=== PATIENT | female | born 1955 ===

== ENCOUNTER 2017-07-05 11:27 | Observation (INO) | payer OTHER ==
[2017-07-05] MEDS ORDERED: Aspirin 325 mg EC Tablets PO STA (12:40)
[2017-07-05] MEDS ORDERED: Sodium Chloride 0.9% 500 ML IV ONE ×2 (12:40→12:51)
[2017-07-05 13:18] LABS: BASO # 0.1 K/uL (0.0-0.2); BASO % 1.2 % (0.0-2.0); EOS # 0.5 K/uL (0.0-0.7); EOS % 6.4 % (0.0-4.0); LYMPH # 2.6 K/uL (1.0-4.3); LYMPH % 31.4 % (20.0-40.0); MEAN CELL VOLUME 92.4 fL (81.0-99.0); MEAN CORPUSCULAR HEMOGLOBIN 31.5 pg (27.0-31.0); MEAN CORPUSCULAR HGB CONC 34.1 g/dL (33.0-37.0); MEAN PLATELET VOLUME 8.4 fL (7.2-11.7); MONO # 0.5 K/uL (0.0-0.8); MONO % 6.1 % (0.0-10.0); RED CELL DISTRIBUTION WIDTH 13.5 % (11.5-14.5); WHITE BLOOD COUNT 8.3 K/uL (4.8-10.8)
--- NOTE | 2017-07-05 13:21 | RAD ---
HISTORY: SOB COMPARISON: None available. TECHNIQUE: Chest PA and lateral FINDINGS: Examination limited by habitus. LUNGS: No focal consolidation. Please note that chest x-ray has limited sensitivity for the detection of pulmonary masses. PLEURA: No significant pleural effusion identified. No definite pneumothorax . CARDIOVASCULAR: Heart size appears within normal limits. OSSEOUS STRUCTURES: Degenerative changes of the spine. VISUALIZED UPPER ABDOMEN: Mild elevation of the right hemidiaphragm. OTHER FINDINGS: None. IMPRESSION: No focal consolidation, significant pleural effusion, or definite pneumothorax identified.
[2017-07-05 13:27] LABS: CHLORIDE 99 mmol/L (98-107); POTASSIUM 3.5 mmol/L (3.6-5.2); SODIUM 133 mmol/L (132-148)
[2017-07-05 13:29] LABS: AST/SGOT 19 U/L (14-36); BILIRUBIN,TOTAL 0.6 mg/dL (0.2-1.3); CARBON DIOXIDE 23 mmol/L (22-30); GFR AFRICAN-AMERICAN > 60
[2017-07-05 13:30] LABS: ALB/GLOB RATIO 1.4 (1.0-2.1); ALKALINE PHOSPHATASE 67 U/L (38-126); ALT/SGPT 24 U/L (9-52); BLOOD UREA NITROGEN 14 mg/dL (7-17); CALCIUM 9.6 mg/dl (8.6-10.4); GLUCOSE,RANDOM 96 mg/dL (65-105); TOTAL PROTEIN 7.1 g/dL (6.3-8.3)
[2017-07-05] MEDS ORDERED: Labetalol 25mg/5ml Syringe IV STA (13:58)
[2017-07-05 14:02] LABS: THYROID STIMULATING HORMONE 2.33 mIU/L (0.46-4.68)
[2017-07-05 14:09] LABS: URINE BACTERIA OCC (<OCC); URINE BILIRUBIN NEGATIVE (NEGATIVE); URINE BLOOD NEGATIVE (NEGATIVE); URINE COLOR Straw (YELLOW); URINE GLUCOSE (UA) NORMAL (Normal); URINE KETONE NEGATIVE (NEGATIVE); URINE LEUKOCYTE ESTERASE NEG Leu/uL (Negative); URINE PROTEIN NEGATIVE (NEGATIVE); URINE UROBILINOGEN NORMAL mg/dL (0.2-1.0); WBC URINE < 1 /hpf (0-5)
--- NOTE | 2017-07-05 14:13 | C.PDOC ---
History Of Present Illness 62 year old female, with PMHx of HTN, presents to ED for evaluation of intermittent right side neck tightness for the past few weeks. Pt notes that pain radiates to right occipital area with associated headaches. Pt also reports intermittent chest pain, and palpitations, notes having similar symptoms in the past, usually worse with coughing. Pt notes that she was "not feeling well" for the past few days, which prompted her to visit ED. Denies any chest pain, shortness of breath, or palpitations at this time. Otherwise, denies visual changes, focal deficits, extremity weakness, numbness, back pain, fever, chills, nausea, or vomiting. Time Seen by Provider: 07/05/17 11:47 Chief Complaint (Nursing): Palpitations History Per: Patient History/Exam Limitations: no limitations Onset/Duration Of Symptoms: Days Current Symptoms Are (Timing): Still Present Quality Of Discomfort: "Pain" Previous Symptoms: Neck Pain Associated Symptoms: None. denies: Incontinence, New Weakness, New Numbness Exacerbating Factor(s): Nothing Recent travel outside of the [place]: No Additional History Per: Patient Past Medical History Reviewed: Historical Data, Nursing Documentation, Vital Signs Vital Signs: Last Vital Signs Temp 98.3 F 07/05/17 11:36 Pulse 83 07/05/17 14:42 Resp 18 07/05/17 14:42 BP 149/72 07/05/17 14:42 Pulse Ox 97 07/05/17 15:22 - Medical History PMH: HTN Surgical History: Back Surgery Family History: States: Unknown Family Hx - Social History Hx Alcohol Use: No Hx Substance Use: No - Immunization History Hx Tetanus Toxoid Vaccination: No Hx Influenza Vaccination: No Hx Pneumococcal Vaccination: No Review Of Systems Except As Marked, All Systems Reviewed And Found Negative. Constitutional: Negative for: Fever, Chills Eyes: Negative for: Vision Change Cardiovascular: Negative for: Chest Pain, Palpitations, Edema, Light Headedness Respiratory: Negative for: Cough, Shortness of Breath Gastrointestinal: Negative for: Nausea, Vomiting, Abdominal Pain, Diarrhea Musculoskeletal: Positive for: Neck Pain. Negative for: Shoulder Pain, Back Pain Skin: Negative for: Rash, Bruising Neurological: Positive for: Headache. Negative for: Weakness, Numbness, Dizziness Physical Exam - Physical Exam Appears: Well, Non-toxic, No Acute Distress Skin: Normal Color, Warm, Dry, No Rash Head: Normacephalic Eye(s): bilateral: PERRL Oral Mucosa: Moist, No Drooling Neck: Normal ROM, No Midline Cervical Tenderness, No Paracervical Tenderness, Supple Chest: Symmetrical, No Tenderness Cardiovascular: Rhythm Regular, No Murmur Respiratory: No Accessory Muscle Use, No Rales, No Rhonchi, No Stridor, No Wheezing Gastrointestinal/Abdominal: Soft, No Tenderness Back: No CVA Tenderness Extremity: Normal ROM, No Pedal Edema, No Deformity Neurological/Psych: Oriented x3, Normal Speech, Normal Cognition, Normal Motor, Normal Sensation Gait: Steady ED Course And Treatment - Laboratory Results Result Diagrams: 07/05/17 13:13 07/05/17 13:13 Lab Interpretation: No Acute Changes ECG: Interpreted By Me, Viewed By Me ECG Rhythm: Sinus Rhythm ECG Interpretation: Normal Interpretation Of ECG: No acute ST/T wave changes. Rate From EC (bpm) O2 Sat by Pulse Oximetry: 97 (RA) Pulse Ox Interpretation: Normal - Other Rad CXR X-Ray: Read By Radiologist Interpretation: reator : Jamila Grace MD. Dictator : Jamila Grace MD. Audit Tech : Front Desk Attendant : Jamila Grace MD. Approver2 : Report Date : 07/05/2017 13:19:49. My Comment : . HISTORY: SOB. COMPARISON: None available. TECHNIQUE: Chest PA and lateral. FINDINGS: Examination limited by habitus. LUNGS: No focal consolidation. Please note that chest x-ray has limited sensitivity for the detection of pulmonary masses. PLEURA: No significant pleural effusion identified. No definite pneumothorax . CARDIOVASCULAR: Heart size appears within normal limits. OSSEOUS STRUCTURES : Degenerative changes of the spine. VISUALIZED UPPER ABDOMEN: Mild elevation of the right hemidiaphragm. OTHER FINDINGS: None. IMPRESSION: No focal consolidation, significant pleural effusion, or definite pneumothorax identified. Progress Note: Blood work, UA, CXR, EKG, angio neck CT ordered and reviewed. Patient was given Aspirin, Labetalol, and IV fluids. On re-eval, pt remained unchanged. Case discussed with ED attending, diagnostics and imaging review and admission recommend. Plan discussed with pt, carol with plan. Hospitalist notified about admission. Disposition - Disposition Disposition: HOSPITALIZED Disposition Time: 15:22 Condition: STABLE Forms: [employer] (Hebrew) - Clinical Impression Clinical Impression: Chest pain - PA / AGRICULTURAL ECONOMICS TEACHER / Resident Statement MD/DO has reviewed & agrees with the documentation as recorded. - Scribe Statement The provider has reviewed the documentation as recorded by the Scribe Sheree Ramirez All medical record entries made by the Tessyibe were at my direction and personally dictated by me. I have reviewed the chart and agree that the record accurately reflects my personal performance of the history, physical exam, medical decision making, and the department course for this patient. I have also personally directed, reviewed, and agree with the discharge instructions and disposition.
[2017-07-05] MEDS ORDERED: Iodixanol 320 MG/ML 100 ML BOTTLE IV ONE (15:14)
--- NOTE | 2017-07-05 19:44 | CP.PCM.HP ---
<Ole Carlton - Last Filed: 07/05/17 19:41> History of Present Illness - History of Present Illness History of Present Illness: Medicine H/P for Dr. Blanco CC: "right neck pain" HPI: 62 year old female with PMHx of HTN presents to the ED complaining of moderate persistent right sided neck pain starting yesterday night while doing nothing. The pain is described as "burning" and radiates to the base of the head on the right side that worsens when turning the head to the left. Patient also complains of moderate right shoulder and upper arm pain described as "similar to when my blood pressure is high" although patient states she did not take her BP at home. Associated symptoms include two episodes of palpitations last week that each lasted a few seconds. Patient states she reduced her HTN medication at home starting two months ago because she was running low. Rather than taking Amlodipine/Valsartan 10-160 mg once a day, she had reduced dosing to once a week. Denies trauma, recent illness, or sick contacts. Denies fever, chills, nausea, vomiting, chest pain, SOB, VELASQUEZ. On arrival to ED, patient's BP was 168/90. Patient given ASA 325 mg PO and Labetelol 20 mg IV. At time of exam, patient's BP was 134/92 and she states her neck pain had improved Obstetrics Nurse service provided by Dasia Mcmanus ([id number]) PMD: none PMHx: HTN PSurgHx: none Allergies: NKDA Home Medications: Amlodipine/Valsartan 10-160 mg PO daily FamHx: father had stroke at age 72 SocialHx: lives with a family friend; denies tobacco/alcohol/illicit drug use; works under an agency that frequently reassigns her, currently working in a factory Present on Admission - Present on Admission Any Indicators Present on Admission: No Review of Systems - Constitutional Constitutional: As Per HPI - EENT Eyes: As Per HPI Ears: As Per HPI Nose/Mouth/Throat: As Per HPI - Breasts Breasts: As Per HPI - Cardiovascular Cardiovascular: As Per HPI - Respiratory Respiratory: As Per HPI - Gastrointestinal Gastrointestinal: As Per HPI - Genitourinary Genitourinary: As Per HPI - Reproductive: Female Reproductive:Female: As Per HPI - Menstruation Menstruation: As Per HPI - Musculoskeletal Musculoskeletal: As Per HPI - Integumentary Integumentary: As Per HPI - Neurological Neurological: As Per HPI - Psychiatric Psychiatric: As Per HPI - Endocrine Endocrine: As Per HPI - Hematologic/Lymphatic Hematologic: As Per HPI Past Patient History - Past Social History Smoking Status: Never Smoked - CARDIAC Hx Hypertension: Yes - PSYCHIATRIC Hx Substance Use: No - SURGICAL HISTORY Hx Section: Yes Hx Orthopedic Surgery: Yes - ANESTHESIA Hx Anesthesia: Yes Hx Anesthesia Reactions: No Hx Malignant Hyperthermia: No Meds Allergies/Adverse Reactions: Allergies Allergy/AdvReac Type Severity Reaction Status Date / Time No Known Allergies Allergy Verified 07/05/17 11:39 Physical Exam - Constitutional Appears: Well, Non-toxic, No Acute Distress - Head Exam Head Exam: ATRAUMATIC, NORMAL INSPECTION, NORMOCEPHALIC - Eye Exam Eye Exam: EOMI - ENT Exam ENT Exam: Mucous Membranes Moist - Neck Exam Additional comments: tenderness to palpation on r. aspect of neck - Respiratory Exam Respiratory Exam: Clear to Auscultation Bilateral, NORMAL BREATHING PATTERN - Cardiovascular Exam Cardiovascular Exam: REGULAR RHYTHM - GI/Abdominal Exam GI & Abdominal Exam: Normal Bowel Sounds, Soft. absent: Tenderness - Extremities Exam Extremities exam: Negative for: joint swelling, tenderness - Back Exam Back exam: absent: CVA tenderness (L), CVA tenderness (R) - Neurological Exam Neurological exam: Alert, Oriented x3 - Psychiatric Exam Psychiatric exam: Normal Affect, Normal Mood - Skin Skin Exam: Dry, Intact, Normal Color, Warm Results - Vital Signs Recent Vital Signs: Last Vital Signs Temp 98.3 F 07/05/17 11:36 Pulse 70 07/05/17 19:05 Resp 18 07/05/17 19:05 BP 137/80 07/05/17 19:05 Pulse Ox 100 07/05/17 19:05 - Labs Result Diagrams: 07/05/17 13:13 07/05/17 13:13 Labs: Laboratory Results - last 24 hr 07/05/17 07/05/17 07/05/17 13:13 13:13 13:13 WBC 8.3 RBC 4.21 Hgb 13.3 Hct 39.0 MCV 92.4 MCH 31.5 H MCHC 34.1 RDW 13.5 Plt Count 194 MPV 8.4 Neut % (Auto) 54.9 Lymph % (Auto) 31.4 [place] % (Auto) 6.1 Eos % (Auto) 6.4 H Baso % (Auto) 1.2 Neut # 4.5 Lymph # 2.6 [place] # 0.5 Eos # 0.5 Baso # 0.1 PT 11.0 INR 1.0 APTT 33 Sodium 133 Potassium 3.5 L Chloride 99 Carbon Dioxide 23 Anion Gap 15 BUN 14 Creatinine 0.6 L Est GFR ( Amer) > 60 Est GFR (Non-Af Amer) > 60 Random Glucose 96 Calcium 9.6 Total Bilirubin 0.6 AST 19 ALT 24 Alkaline Phosphatase 67 Troponin I < 0.0120 NT-Pro-B Natriuret Pep 130 Total Protein 7.1 Albumin 4.2 Globulin 2.9 Albumin/Globulin Ratio 1.4 TSH 3rd Generation 2.33 Urine Color Urine Clarity Urine pH Ur Specific [place] Urine Protein Urine Glucose (UA) Urine Ketones Urine Blood Urine Nitrate Urine Bilirubin Urine Urobilinogen Ur Leukocyte Esterase Urine WBC (Auto) Ur Squamous Epith Cells Urine Bacteria 07/05/17 14:00 WBC RBC Hgb Hct MCV MCH MCHC RDW Plt Count MPV Neut % (Auto) Lymph % (Auto) [place] % (Auto) Eos % (Auto) Baso % (Auto) Neut # Lymph # [place] # Eos # Baso # PT INR APTT Sodium Potassium Chloride Carbon Dioxide Anion Gap BUN Creatinine Est GFR ( Amer) Est GFR (Non-Af Amer) Random Glucose Calcium Total Bilirubin AST ALT Alkaline Phosphatase Troponin I NT-Pro-B Natriuret Pep Total Protein Albumin Globulin Albumin/Globulin Ratio TSH 3rd Generation Urine Color Straw Urine Clarity Clear Urine pH 7.0 Ur Specific [place] 1.006 Urine Protein Negative Urine Glucose (UA) Normal Urine Ketones Negative Urine Blood Negative Urine Nitrate Negative Urine Bilirubin Negative Urine Urobilinogen Normal Ur Leukocyte Esterase Neg Urine WBC (Auto) < 1 Ur Squamous Epith Cells < 1 Urine Bacteria Occ H Assessment & Plan - Assessment and Plan (Free Text) Assessment: R. Neck Pain * Cards ([place]) * Associated with questionable chest pain * TRAMAINE x3 * 1x negative * f/u TRAMAINE * CTA F/U HTN * Amlodipine 10 PO QD * Losartan 100 PO QD PPx * colace 100 mg PO BID * Pepcid 20 mg PO BID * Zofran 4 IV Q6 PRN <Abhishek Blanco - Last Filed: 07/14/17 18:06> Results - Vital Signs Recent Vital Signs: Last Vital Signs Temp 97.6 F 07/06/17 07:20 Pulse 72 07/06/17 16:57 Resp 20 07/06/17 07:20 BP 122/67 07/06/17 07:20 Pulse Ox 99 07/06/17 07:20 - Labs Result Diagrams: 07/06/17 08:08 07/06/17 08:08 Attending/Attestation - Attestation I have personally seen and examined this patient.: Yes I have fully participated in the care of the patient.: Yes I have reviewed all pertinent clinical information: Yes Notes (Text): Patient was seen and examined.Discussed with the resident I agree with the resident's documentation of the assessment and plan
[2017-07-05] MEDS ORDERED: Potassium Chloride 20 mEq ER Tab PO ONE (21:09)
[2017-07-06 01:17] VITALS: RESP 20
[2017-07-06 08:20] LABS: BASO # 0.1 K/uL (0.0-0.2); BASO % 1.1 % (0.0-2.0); EOS # 0.4 K/uL (0.0-0.7); EOS % 5.9 % (0.0-4.0); HEMATOCRIT 40.9 % (34.0-47.0); LYMPH # 2.1 K/uL (1.0-4.3); LYMPH % 29.1 % (20.0-40.0); MEAN CELL VOLUME 92.8 fL (81.0-99.0); MEAN CORPUSCULAR HEMOGLOBIN 31.4 pg (27.0-31.0); MEAN CORPUSCULAR HGB CONC 33.8 g/dL (33.0-37.0); MEAN PLATELET VOLUME 8.3 fL (7.2-11.7); MONO # 0.5 K/uL (0.0-0.8); MONO % 6.7 % (0.0-10.0); NRBC % 0.1 % (0.0-2.0); RED CELL DISTRIBUTION WIDTH 13.3 % (11.5-14.5); WHITE BLOOD COUNT 7.1 K/uL (4.8-10.8)
[2017-07-06 08:38] LABS: CHLORIDE 99 mmol/L (98-107); POTASSIUM 3.9 mmol/L (3.6-5.2); SODIUM 135 mmol/L (132-148)
[2017-07-06 08:40] LABS: ALB/GLOB RATIO 1.5 (1.0-2.1); AST/SGOT 24 U/L (14-36); BILIRUBIN,TOTAL 0.9 mg/dL (0.2-1.3); CARBON DIOXIDE 26 mmol/L (22-30); GFR AFRICAN-AMERICAN > 60; TOTAL PROTEIN 7.2 g/dL (6.3-8.3)
[2017-07-06 08:41] LABS: ALKALINE PHOSPHATASE 75 U/L (38-126); ALT/SGPT 15 U/L (9-52); BLOOD UREA NITROGEN 14 mg/dL (7-17); CALCIUM 9.4 mg/dl (8.6-10.4); GLUCOSE,RANDOM 105 mg/dL (65-105)
[2017-07-06 08:52] VITALS: BP 122/67; TEMP 97.6; O2SAT 99
[2017-07-06] MEDS ORDERED: Pneumococcal 23-Valent Vaccine IM ONE (10:00)
[2017-07-06] MEDS ORDERED: Influenza Vaccine 60 mcg/0.5 mL SYR (4YR UP) IM ONE (10:00)
[2017-07-06] MEDS ORDERED: Enoxaparin 40 mg Syringe SC SCH (14:00)
[2017-07-06 17:00] VITALS: PULSE 72
--- NOTE | 2017-07-06 17:11 | CP.PCM.DIS ---
<Curtis Whitaker - Last Filed: 07/06/17 17:06> Provider - Provider Date of Admission: 07/05/17 15:40 Attending physician: Abhishek Blanco MD Primary care physician: PMD: none Consults: Cardiology: Dr Castellano Time Spent in preparation of Discharge (in minutes): 45 Hospital Course - Lab Results Lab Results: Most Recent Lab Values WBC 7.1 K/uL (4.8-10.8) 07/06/17 08:08 RBC 4.41 Mil/uL (3.80-5.20) 07/06/17 08:08 Hgb 13.8 g/dL (11.0-16.0) 07/06/17 08:08 Hct 40.9 % (34.0-47.0) 07/06/17 08:08 MCV 92.8 fL (81.0-99.0) 07/06/17 08:08 MCH 31.4 pg (27.0-31.0) H 07/06/17 08:08 MCHC 33.8 g/dL (33.0-37.0) 07/06/17 08:08 RDW 13.3 % (11.5-14.5) 07/06/17 08:08 Plt Count 195 K/uL (130-400) 07/06/17 08:08 MPV 8.3 fL (7.2-11.7) 07/06/17 08:08 Neut % (Auto) 57.2 % (50.0-75.0) 07/06/17 08:08 Lymph % (Auto) 29.1 % (20.0-40.0) 07/06/17 08:08 [place] % (Auto) 6.7 % (0.0-10.0) 07/06/17 08:08 Eos % (Auto) 5.9 % (0.0-4.0) H 07/06/17 08:08 Baso % (Auto) 1.1 % (0.0-2.0) 07/06/17 08:08 Neut # 4.1 K/uL (1.8-7.0) 07/06/17 08:08 Lymph # 2.1 K/uL (1.0-4.3) 07/06/17 08:08 [place] # 0.5 K/uL (0.0-0.8) 07/06/17 08:08 Eos # 0.4 K/uL (0.0-0.7) 07/06/17 08:08 Baso # 0.1 K/uL (0.0-0.2) 07/06/17 08:08 PT 11.0 SECONDS (9.7-12.2) 07/05/17 13:13 INR 1.0 07/05/17 13:13 APTT 33 SECONDS (21-34) 07/05/17 13:13 Sodium 135 mmol/L (132-148) 07/06/17 08:08 Potassium 3.9 mmol/L (3.6-5.2) 07/06/17 08:08 Chloride 99 mmol/L (98-107) 07/06/17 08:08 Carbon Dioxide 26 mmol/L (22-30) 07/06/17 08:08 Anion Gap 14 (10-20) 07/06/17 08:08 BUN 14 mg/dL (7-17) 07/06/17 08:08 Creatinine 0.7 mg/dL (0.7-1.2) 07/06/17 08:08 Est GFR ( Amer) > 60 07/06/17 08:08 Est GFR (Non-Af Amer) > 60 07/06/17 08:08 Random Glucose 105 mg/dL (65-105) 07/06/17 08:08 Calcium 9.4 mg/dl (8.6-10.4) 07/06/17 08:08 Total Bilirubin 0.9 mg/dL (0.2-1.3) 07/06/17 08:08 AST 24 U/L (14-36) 07/06/17 08:08 ALT 15 U/L (9-52) 07/06/17 08:08 Alkaline Phosphatase 75 U/L (38-126) 07/06/17 08:08 Total Creatine Kinase 81 U/L (30-135) 07/06/17 01:40 CK-MB (Mass) 1.49 ng/mL (0.0-3.38) 07/06/17 01:40 Troponin I < 0.0120 ng/mL (0.00-0.120) 07/05/17 13:13 Troponin I, Quant < 0.0120 ng/mL (0.00-0.120) 07/06/17 01:40 NT-Pro-B Natriuret Pep 130 pg/mL (0-900) 07/05/17 13:13 Total Protein 7.2 g/dL (6.3-8.3) 07/06/17 08:08 Albumin 4.3 g/dL (3.5-5.0) 07/06/17 08:08 Globulin 2.9 gm/dL (2.2-3.9) 07/06/17 08:08 Albumin/Globulin Ratio 1.5 (1.0-2.1) 07/06/17 08:08 TSH 3rd Generation 2.33 mIU/L (0.46-4.68) 07/05/17 13:13 Urine Color Straw (YELLOW) 07/05/17 14:00 Urine Clarity Clear (Clear) 07/05/17 14:00 Urine pH 7.0 (5.0-8.0) 07/05/17 14:00 Ur Specific [place] 1.006 (1.003-1.030) 07/05/17 14:00 Urine Protein Negative mg/dL (NEGATIVE) 07/05/17 14:00 Urine Glucose (UA) Normal mg/dL (Normal) 07/05/17 14:00 Urine Ketones Negative mg/dL (NEGATIVE) 07/05/17 14:00 Urine Blood Negative (NEGATIVE) 07/05/17 14:00 Urine Nitrate Negative (NEGATIVE) 07/05/17 14:00 Urine Bilirubin Negative (NEGATIVE) 07/05/17 14:00 Urine Urobilinogen Normal mg/dL (0.2-1.0) 07/05/17 14:00 Ur Leukocyte Esterase Neg [place]/uL (Negative) 07/05/17 14:00 Urine WBC (Auto) < 1 /hpf (0-5) 07/05/17 14:00 Ur Squamous Epith Cells < 1 /hpf (0-5) 07/05/17 14:00 Urine Bacteria Occ (<OCC) H 07/05/17 14:00 - Hospital Course Hospital Course: Medicine H/P for Dr. Blanco CC: "right neck pain" HPI: 62 year old female with PMHx of HTN presents to the ED complaining of moderate persistent right sided neck pain starting yesterday night while doing nothing. The pain is described as "burning" and radiates to the base of the head on the right side that worsens when turning the head to the left. Patient also complains of moderate right shoulder and upper arm pain described as "similar to when my blood pressure is high" although patient states she did not take her BP at home. Associated symptoms include two episodes of palpitations last week that each lasted a few seconds. Patient states she reduced her HTN medication at home starting two months ago because she was running low. Rather than taking Amlodipine/Valsartan 10-160 mg once a day, she had reduced dosing to once a week. Denies trauma, recent illness, or sick contacts. Denies fever, chills, nausea, vomiting, chest pain, SOB, VELASQUEZ. On arrival to ED, patient's BP was 168/90. Patient given ASA 325 mg PO and Labetelol 20 mg IV. 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 Her ROMIs were negative and her EKG showed normal sinus rhythm. A CXR was taken which was unremarkable. A CTA was done which was unremarkable. She was hypertensive and was put on Amlodipine 10 PO QD, Losartan 100 PO QD. Her CMP and CBC was within normal limits. Her urinanalysis was clean. Her pain resolved quickly, and this morning she is asymptomatic. Building Analyst/Supervisor, Dr Castellano, was consulted who will see the patient in his office for a stress test. Discharge Exam - Head Exam Head Exam: ATRAUMATIC, NORMAL INSPECTION, NORMOCEPHALIC - Eye Exam Eye Exam: EOMI, Normal appearance - ENT Exam ENT Exam: Mucous Membranes Moist - Neck Exam Neck exam: Normal Inspection - Respiratory Exam Respiratory Exam: Clear to PA & Lateral, NORMAL BREATHING PATTERN. absent: Rales, Rhonchi, Wheezes - Cardiovascular Exam Cardiovascular Exam: REGULAR RHYTHM. absent: Bradycardia, Tachycardia, Irregular Rhythm, Systolic Murmur - GI/Abdominal Exam GI & Abdominal Exam: Normal Bowel Sounds, Soft, Unremarkable. absent: Tenderness - Neurological Exam Neurological exam: Alert, CN II-XII Intact, Normal Gait, Oriented x3 - Psychiatric Exam Psychiatric exam: Normal Affect, Normal Mood - Skin Skin Exam: Dry, Intact, Normal Color, Warm Discharge Plan - Discharge Medications Prescriptions: Amlodipine/Valsartan [Amlodipine-Valsartan 10-160 mg] 1 tab PO PRN PRN #30 tablet PRN Reason: BLOOD PRESSURE - Follow Up Plan Condition: STABLE Disposition: HOME/ ROUTINE Instructions: Chest Pain (DC), Palpitations (DC), Heart Healthy Diet (DC) Additional Instructions: Patient is medically stable for discharge. Please make an appointment with precision layout worker Dr Castellano (office: [phone]). He is aware of this patient and has agreed to see her in his office. Please continue your home medications. Please make an appointment with the [facility] ( ) to establish care. Please do this within 1 week. Referrals: Rebeca Castellano MD [Staff Provider] - <Abhishek Blanco - Last Filed: 07/15/17 10:42> Provider - Provider Date of Admission: 07/05/17 15:40 Attending physician: Abhishek Blanco MD Hospital Course - Lab Results Lab Results: Most Recent Lab Values WBC 7.1 K/uL (4.8-10.8) 07/06/17 08:08 RBC 4.41 Mil/uL (3.80-5.20) 07/06/17 08:08 Hgb 13.8 g/dL (11.0-16.0) 07/06/17 08:08 Hct 40.9 % (34.0-47.0) 07/06/17 08:08 MCV 92.8 fL (81.0-99.0) 07/06/17 08:08 MCH 31.4 pg (27.0-31.0) H 07/06/17 08:08 MCHC 33.8 g/dL (33.0-37.0) 07/06/17 08:08 RDW 13.3 % (11.5-14.5) 07/06/17 08:08 Plt Count 195 K/uL (130-400) 07/06/17 08:08 MPV 8.3 fL (7.2-11.7) 07/06/17 08:08 Neut % (Auto) 57.2 % (50.0-75.0) 07/06/17 08:08 Lymph % (Auto) 29.1 % (20.0-40.0) 07/06/17 08:08 [place] % (Auto) 6.7 % (0.0-10.0) 07/06/17 08:08 Eos % (Auto) 5.9 % (0.0-4.0) H 07/06/17 08:08 Baso % (Auto) 1.1 % (0.0-2.0) 07/06/17 08:08 Neut # 4.1 K/uL (1.8-7.0) 07/06/17 08:08 Lymph # 2.1 K/uL (1.0-4.3) 07/06/17 08:08 [place] # 0.5 K/uL (0.0-0.8) 07/06/17 08:08 Eos # 0.4 K/uL (0.0-0.7) 07/06/17 08:08 Baso # 0.1 K/uL (0.0-0.2) 07/06/17 08:08 PT 11.0 SECONDS (9.7-12.2) 07/05/17 13:13 INR 1.0 07/05/17 13:13 APTT 33 SECONDS (21-34) 07/05/17 13:13 Sodium 135 mmol/L (132-148) 07/06/17 08:08 Potassium 3.9 mmol/L (3.6-5.2) 07/06/17 08:08 Chloride 99 mmol/L (98-107) 07/06/17 08:08 Carbon Dioxide 26 mmol/L (22-30) 07/06/17 08:08 Anion Gap 14 (10-20) 07/06/17 08:08 BUN 14 mg/dL (7-17) 07/06/17 08:08 Creatinine 0.7 mg/dL (0.7-1.2) 07/06/17 08:08 Est GFR ( Amer) > 60 07/06/17 08:08 Est GFR (Non-Af Amer) > 60 07/06/17 08:08 Random Glucose 105 mg/dL (65-105) 07/06/17 08:08 Calcium 9.4 mg/dl (8.6-10.4) 07/06/17 08:08 Total Bilirubin 0.9 mg/dL (0.2-1.3) 07/06/17 08:08 AST 24 U/L (14-36) 07/06/17 08:08 ALT 15 U/L (9-52) 07/06/17 08:08 Alkaline Phosphatase 75 U/L (38-126) 07/06/17 08:08 Total Creatine Kinase 81 U/L (30-135) 07/06/17 01:40 CK-MB (Mass) 1.49 ng/mL (0.0-3.38) 07/06/17 01:40 Troponin I < 0.0120 ng/mL (0.00-0.120) 07/05/17 13:13 Troponin I, Quant < 0.0120 ng/mL (0.00-0.120) 07/06/17 01:40 NT-Pro-B Natriuret Pep 130 pg/mL (0-900) 07/05/17 13:13 Total Protein 7.2 g/dL (6.3-8.3) 07/06/17 08:08 Albumin 4.3 g/dL (3.5-5.0) 07/06/17 08:08 Globulin 2.9 gm/dL (2.2-3.9) 07/06/17 08:08 Albumin/Globulin Ratio 1.5 (1.0-2.1) 07/06/17 08:08 TSH 3rd Generation 2.33 mIU/L (0.46-4.68) 07/05/17 13:13 Urine Color Straw (YELLOW) 07/05/17 14:00 Urine Clarity Clear (Clear) 07/05/17 14:00 Urine pH 7.0 (5.0-8.0) 07/05/17 14:00 Ur Specific [place] 1.006 (1.003-1.030) 07/05/17 14:00 Urine Protein Negative mg/dL (NEGATIVE) 07/05/17 14:00 Urine Glucose (UA) Normal mg/dL (Normal) 07/05/17 14:00 Urine Ketones Negative mg/dL (NEGATIVE) 07/05/17 14:00 Urine Blood Negative (NEGATIVE) 07/05/17 14:00 Urine Nitrate Negative (NEGATIVE) 07/05/17 14:00 Urine Bilirubin Negative (NEGATIVE) 07/05/17 14:00 Urine Urobilinogen Normal mg/dL (0.2-1.0) 07/05/17 14:00 Ur Leukocyte Esterase Neg Jorge/uL (Negative) 07/05/17 14:00 Urine WBC (Auto) < 1 /hpf (0-5) 07/05/17 14:00 Ur Squamous Epith Cells < 1 /hpf (0-5) 07/05/17 14:00 Urine Bacteria Occ (<OCC) H 07/05/17 14:00 Attending/Attestation - Attestation I have personally seen and examined this patient.: Yes I have fully participated in the care of the patient.: Yes I have reviewed all pertinent clinical information, including history, physical exam and plan: Yes Notes (Text): Patient was seen and examined.No complain Plan discussed with the resident I agree with the resident's documentation of the assessment and the plan
--- NOTE | 2017-07-06 18:20 | CT ---
PROCEDURE: CT angiogram of the neck and brain dated 07/05/2017 HISTORY: Right neck pressure, headache COMPARISON: No prior study available for comparison TECHNIQUE: Contiguous helical/transaxial images of the neck were obtained from the level of the skull-base to the superior mediastinum in the arteriographic phase of enhancement. Coronal and sagittal reformats or also generated. IV contrast dose: 100 cc Visipaque 320 contrast material. Radiation Dose - DLP: 940.57mGy-cm This CT exam was performed using one or more of the following dose reduction techniques: Automated exposure control, adjustment of the mA and/or kV according to patient size, and/or use of iterative reconstruction technique. Visualized aortic arch is well opacified with surface only minimal partially calcified atherosclerotic plaque. 2 vessel arch with the right brachiocephalic and left carotid arising from a common trunk. The common carotid arteries, carotid bifurcations and internal carotid arteries are widely patent. Some very minimal calcified plaque seen along distal anterolateral margin of the left common carotid artery at the level of the bifurcation. The remaining visualized internal carotid arteries including the petrous cavernous and supraclinoid segments widely patent. There is a few tiny calcified plaques along the left cavernous carotid artery though no significant stenosis. The supraclinoid carotid arteries as well as the A1 and M1 segments and distal cerebral vasculature unremarkable. The vertebral arteries are asymmetric right-sided which is larger in caliber/more dominant than the left. The basilar artery is also patent. origins of both posterior cerebral arteries with hypoplastic P1 segments. The distal posterior cerebral artery is unremarkable. Note made of mild moderate mucosal thickening within the ethmoid air complex extending superiorly into the frontal sinus. There is also minor mucosal thickening in the maxillary antra bilaterally. Some minor asymmetry of the vallecula likely due to some encroaching lingual tonsils and possibly some residual/retained secretion. Aryepiglottic folds and pyriform sinuses are relatively symmetric. There are multiple relatively small bilateral cervical lymph nodes the largest in the left jugulodigastric region measuring approximately 14.7 mm Small calcification right lobe thyroid gland. Consider followup thyroid ultrasound. T Mild multilevel degenerative spondylosis of the cervical spine. Impression: No evidence of occlusion dissection or large aneurysm/ vascular malformation. See above discussion for additional details and findings.
[2017-07-06] MEDS ORDERED: Potassium Chloride 20 mEq ER Tab PO ONE (21:06)
--- NOTE | 2017-07-07 10:27 | CARD ---
APPROVED REPORT EKG Measurement Heart [id number] <Conclusion> Normal sinus rhythm Normal ECG
== END 2017-07-06 19:28 | disposition home or self-care (01) ==
LOC: C.ER 11:27 → C.9E 15:40 → C.6T 19:14
PROVIDERS: ADMIT Internal Medicine; ATTEND Internal Medicine
DX: R07.9 Chest pain, unspecified (principal); I10 Essential (primary) hypertension; M54.2 Cervicalgia
CPT/HCPCS: 36415; 70498; 71020; 80053; 81001; 83880; 84443; 84484; 85025; 85610; 85730; 90471; 90674; 90732; 93005; 99285; G0378; J7040; Q9967

== ENCOUNTER 2017-07-26 09:18 | Emergency (ER) | payer OTHER ==
[2017-07-26 09:21] VITALS: BP 138/79; PULSE 70; RESP 20; TEMP 97.5; O2SAT 99
--- NOTE | 2017-07-26 09:43 | C.PDOC ---
History Of Present Illness 62 y/o female, with PMHx of HTN, presents to ED requesting refills of her antihypertensive medications. Pt states that her clinic appointment is next month and states she is running low on her medications. Denies chest pain, shortness of breath, headache, dizziness, fever, or any active physical complaints at this time. Time Seen by Provider: 07/26/17 09:26 Chief Complaint (Nursing): Med Refill History Per: Patient History/Exam Limitations: no limitations Severity: None Pain Scale Rating Of: 0 Recent travel outside of the [place]: No Additional History Per: Patient Past Medical History Reviewed: Historical Data, Nursing Documentation, Vital Signs Vital Signs: Last Vital Signs Temp 97.5 F L 07/26/17 09:19 Pulse 70 07/26/17 09:19 Resp 20 07/26/17 09:19 BP 138/79 07/26/17 09:19 Pulse Ox 99 07/26/17 09:43 - Medical History PMH: Depression, HTN Surgical History: Back Surgery Family History: States: Unknown Family Hx - Social History Hx Alcohol Use: No Hx Substance Use: No - Immunization History Hx Tetanus Toxoid Vaccination: No Hx Influenza Vaccination: Yes Hx Pneumococcal Vaccination: No Review Of Systems Except As Marked, All Systems Reviewed And Found Negative. Constitutional: Negative for: Fever, Chills Cardiovascular: Negative for: Chest Pain, Palpitations Respiratory: Negative for: Cough, Shortness of Breath Neurological: Negative for: Headache, Dizziness Physical Exam - Physical Exam Appears: Non-toxic, No Acute Distress Skin: Normal Color, Warm, Dry Head: Atraumatic, Normacephalic Eye(s): bilateral: Normal Inspection Chest: Symmetrical Cardiovascular: Rhythm Regular, No Murmur Respiratory: Normal Breath Sounds, No Rales, No Rhonchi, No Wheezing Gastrointestinal/Abdominal: Soft, No Tenderness Extremity: Normal ROM, No Pedal Edema Neurological/Psych: Oriented x3, Normal Speech, Normal Cognition ED Course And Treatment O2 Sat by Pulse Oximetry: 99 Pulse Ox Interpretation: Normal Medical Decision Making Medical Decision Making: Pt is being discharged home with Rx. Disposition Counseled Patient/Family Regarding: Diagnosis, Need For Followup, Rx Given - Disposition Referrals: [facility] [Outside] Disposition: HOME/ ROUTINE Disposition Time: 09:41 Condition: STABLE Prescriptions: Amlodipine/Valsartan [Amlodipine-Valsartan 10-160 mg] 1 each PO DAILY #30 tablet Instructions: Hypertension (ED) Forms: [facility] ([place]), Gen Discharge Inst [place] - POA Present On Arrival: None - Clinical Impression Clinical Impression: Review of medication - Scribe Statement The provider has reviewed the documentation as recorded by the Scribe Sheree Ramirez All medical record entries made by the Scribe were at my direction and personally dictated by me. I have reviewed the chart and agree that the record accurately reflects my personal performance of the history, physical exam, medical decision making, and the department course for this patient. I have also personally directed, reviewed, and agree with the discharge instructions and disposition.
== END 2017-07-26 09:52 | disposition home or self-care (01) ==
LOC: C.ER 09:18
DX: Z76.0 Encounter for issue of repeat prescription (principal); I10 Essential (primary) hypertension